=== PATIENT | female | born 1960 | race Caucasian/White ===

== ENCOUNTER → 2016-06-23 | Outpatient (CLI) | payer BC ==
--- NOTE | 2016-06-23 08:35 | MM ---
Reason for exam: additional evaluation requested from prior study. Last mammogram was performed 7 months ago. History: Patient is postmenopausal. Family history of breast cancer in sister at age 48 and breast cancer in maternal aunt. Benign US biopsy breast VAD RT of the right breast, December 05, 2015. Benign US biopsy breast add'l VAD RT of the right breast, December 05, 2015. Benign left mammotome panel of the left breast, November 20, 2012. Benign left mammotome panel of the left breast, October 23, 2009. Benign US right guided VAD of the right breast, October 09, 2008. Benign excisional biopsy of the left breast, March 10, 2000. Cyst aspiration of the right breast. Excisional biopsy of the left breast. Excisional biopsy of the right breast. Took hormonal contraceptives for 10 years beginning at age 19. Physical Findings: Nurse did not find any significant physical abnormalities on exam. MG Diagnostic Mammo RT w CAD CC and MLO view(s) were taken of the right breast. Prior study comparison: December 05, 2015, right breast MG diagnostic mammo RT wo CAD. November 25, 2015, bilateral MG diagnostic mammo w CAD CAITY. The breast tissue is heterogeneously dense. This may lower the sensitivity of mammography. No significant new findings when compared with previous films. These results were verbally communicated with the patient and result sheet given to the patient on 06/23/16. ASSESSMENT: Benign, BI-RAD 2 RECOMMENDATION: Routine screening mammogram of both breasts in 5 months. Back on schedule for November 2016.
== END | disposition home or self-care (01) ==
LOC: RADMAMWWP 07:12
PROVIDERS: ATTEND Surgery
DX: R92.8 Other abnormal and inconclusive findings on diagnostic imaging of breast (principal)

== ENCOUNTER → 2016-12-07 | Outpatient (CLI) | payer BC ==
--- NOTE | 2016-12-10 07:25 | MM ---
Reason for exam: screening (asymptomatic). Last mammogram was performed 5 months ago. History: Patient is postmenopausal. Family history of breast cancer in sister at age 48 and breast cancer in maternal aunt. Benign US biopsy breast VAD RT of the right breast, December 05, 2015. Benign US biopsy breast add'l VAD RT of the right breast, December 05, 2015. Benign left mammotome panel of the left breast, November 20, 2012. Benign left mammotome panel of the left breast, October 23, 2009. Benign US right guided VAD of the right breast, October 09, 2008. Benign excisional biopsy of the left breast, March 10, 2000. Cyst aspiration of the right breast. Excisional biopsy of the left breast. Excisional biopsy of the right breast. Took hormonal contraceptives for 10 years beginning at age 19. Physical Findings: A clinical breast exam by your physician is recommended on an annual basis and results should be correlated with mammographic findings. MG Screening Mammo w CAD Bilateral CC and MLO view(s) were taken. Prior study comparison: June 23, 2016, right breast MG diagnostic mammo RT w CAD. November 25, 2015, bilateral MG diagnostic mammo w CAD CAITY. The breast tissue is heterogeneously dense. This may lower the sensitivity of mammography. Previous mammotome biopsy within the right breast x 3. Previous mammotome biopsy within the left breast x 2. No significant changes when compared with prior studies. ASSESSMENT: Benign, BI-RAD 2 RECOMMENDATION: Routine screening mammogram of both breasts in 1 year.
== END | disposition home or self-care (01) ==
LOC: RADMAMWWP 12:13
PROVIDERS: ATTEND Surgery
DX: Z12.31 Encounter for screening mammogram for malignant neoplasm of breast (principal)

== ENCOUNTER → 2017-02-28 | Outpatient (CLI) | payer BC ==
[2017-02-28 07:49] LABS: CH 30.7; CHCM 31.3; HDW 2.12; HGB 13.6 gm/dL (11.4-16.0); MCH 31.2 pg (25.0-35.0); MCHC 31.6 g/dL (31.0-37.0); MCV 98.7 fL (80.0-100.0); Mean Platelet Volume 7.7; RBC 4.36 m/uL (3.80-5.40); RDW 13.2 % (11.5-15.5); WBC 4.7 k/uL (3.8-10.6)
[2017-02-28 08:34] LABS: ALT 27 U/L (9-52); AST 22 U/L (14-36); Alkaline Phosphatase 94 U/L (38-126); Anion Gap 5 mmol/L; Blood Urea Nitrogen 17 mg/dL (7-17); Calcium 9.6 mg/dL (8.4-10.2); Carbon Dioxide 30 mmol/L (22-30); Chloride 106 mmol/L (98-107); Cholesterol 206 mg/dL (<200); Glucose 86 mg/dL (74-99); HDL Cholesterol 107 mg/dL (40-60); Non-African American GFR(MDRD) >60 (>60 ml/min/1.73 sqM); Potassium 4.3 mmol/L (3.5-5.1); Sodium 141 mmol/L (137-145); Total Bilirubin 0.5 mg/dL (0.2-1.3); Total Protein 6.9 g/dL (6.3-8.2)
== END | disposition home or self-care (01) ==
LOC: LABWHC1 07:16
PROVIDERS: ATTEND Family Medicine
DX: H53.9 Unspecified visual disturbance (principal); E53.8 Deficiency of other specified B group vitamins; D64.9 Anemia, unspecified
CPT/HCPCS: 36415; 80053; 80061; 84443; 85027

== ENCOUNTER → 2017-11-01 | Outpatient (CLI) | payer BC ==
--- NOTE | 2017-11-02 14:54 | USB ---
Reason for exam: additional evaluation requested from abnormal screening. History: Patient is postmenopausal. Family history of breast cancer in sister at age 48 and breast cancer in maternal aunt. Benign US biopsy breast VAD RT of the right breast, December 05, 2015. Benign US biopsy breast add'l VAD RT of the right breast, December 05, 2015. Benign left mammotome panel of the left breast, November 20, 2012. Benign left mammotome panel of the left breast, October 23, 2009. Benign US right guided VAD of the right breast, October 09, 2008. Benign excisional biopsy of the left breast, March 10, 2000. Cyst aspiration of the right breast. Excisional biopsy of the left breast. Excisional biopsy of the right breast. Took hormonal contraceptives for 10 years beginning at age 19. US Breast LT Left complete breast ultrasound includes all four quadrants, the retroareolar region and axilla. Finding demonstrates a 1.8 x 0.7 x 1.6cm oval lesion at 2 o'clock at patient's palpable. This has an appearance suggestive of a prominent lymph node. 6 month follow up recommended. These results were verbally communicated with the patient and result sheet given to the patient on 11/01/17. ASSESSMENT: Probably benign, BI-RAD 3 RECOMMENDATION: Follow-up diagnostic mammogram and ultrasound of the left breast in 6 months.
== END | disposition home or self-care (01) ==
LOC: RADUSWWP 08:10
PROVIDERS: ATTEND Obstetrics & Gynecology
DX: N63.20 Unspecified lump in the left breast, unspecified quadrant (principal)

== ENCOUNTER → 2017-11-01 | Outpatient (CLI) | payer BC ==
--- NOTE | 2017-11-02 14:52 | MM ---
Reason for exam: clinical finding. Last mammogram was performed 11 months ago. History: Patient is postmenopausal. Family history of breast cancer in sister at age 48 and breast cancer in maternal aunt. Benign US biopsy breast VAD RT of the right breast, December 05, 2015. Benign US biopsy breast add'l VAD RT of the right breast, December 05, 2015. Benign left mammotome panel of the left breast, November 20, 2012. Benign left mammotome panel of the left breast, October 23, 2009. Benign US right guided VAD of the right breast, October 09, 2008. Benign excisional biopsy of the left breast, March 10, 2000. Cyst aspiration of the right breast. Excisional biopsy of the left breast. Excisional biopsy of the right breast. Took hormonal contraceptives for 10 years beginning at age 19. Physical Findings: Nurse did not find any significant physical abnormalities on exam. MG Diagnostic Mammo w CAD CAITY Bilateral CC and MLO view(s) were taken. Prior study comparison: December 07, 2016, bilateral MG screening mammo w CAD. June 23, 2016, right breast MG diagnostic mammo RT w CAD. The breast tissue is heterogeneously dense. This may lower the sensitivity of mammography. Previous mammotome biopsy in the right breast x 3 and in the left breast x 1. Patient reports lump 3 o'clock left breast. No significant new findings when compared with previous films. These results were verbally communicated with the patient and result sheet given to the patient on 11/01/17. ASSESSMENT: Incomplete: need additional imaging evaluation, BI-RAD 0 RECOMMENDATION: Ultrasound of the left breast.
== END | disposition home or self-care (01) ==
LOC: RADMAMWWP 08:07
PROVIDERS: ATTEND Student in an Organized Health Care Education/Training Program
DX: N63.20 Unspecified lump in the left breast, unspecified quadrant (principal)
CPT/HCPCS: 77066

== ENCOUNTER → 2018-05-08 | Day surgery (SDC) | payer BC ==
[2018-05-08 07:15] VITALS: RESP 16; BMI 25.8
[2018-05-08 08:47] VITALS: BP 112/68; PULSE 92; TEMP 98.8
--- NOTE | 2018-05-08 08:50 | USB ---
EXAMINATION TYPE: US biopsy breast VAD LT, MG diagnostic mammo LT wo CAD DATE OF EXAM: 05/08/2018 CLINICAL HISTORY: R92.8 ABN. ALEXSANDRA. Abnormal ultrasound. History of bilateral prior biopsies including benign excisional biopsy left breast in the past. TECHNIQUE: Ultrasound guided core biopsy of left breast with clip placement and follow-up two-view mammogram. COMPARISON: Mammogram and ultrasound April 27, 2018 and older studies FINDINGS: The procedure of ultrasound guided core biopsy was explained to the patient. Benefits, alternatives, and risks were discussed. An informed consent was then obtained. The patient was placed in supine positioning for imaging and for the procedure. Preprocedure ultrasound redemonstrates vague irregular shadowing roughly 1 cm area 1:00 position zone B C in the left breast. Scanning of the axilla shows no suspicious or obvious adenopathy to warrant sampling at this time. The overlying skin was prepped and draped in usual sterile fashion. Lidocaine buffered with bicarbonate was used as anesthetic into the skin and subcutaneous tissue up to area of concern in the left breast. A devendra was made with surgical scalpel. Under ultrasound guidance, a 12-gauge vacuum assisted biopsy gun device was used to obtain 4 core samples. Following this, a biopsy clip was left in lesion. The patient tolerated the procedure well without any immediate complication. The patient was kept in the radiology department for short stay after the procedure and then discharged home in stable condition. Postprocedure mammogram shows successful deployment of new clip into the left breast upper portion mid depth. IMPRESSION: Successful, uncomplicated ultrasound guided core biopsy of area of concern in the left breast, full pathology results to follow. Intermediate index of suspicion noted at time of procedure. Pathology Results: Malignant LEFT BREAST, ULTRASOUND GUIDED CORE BIOPSY: Invasive lobular carcinoma and lobular carcinoma in situ (LCIS). See Surgical Pathology Cancer Case Summary and Comment. Recommendation Surgical consult of the left breast. JESUS
== END | disposition home or self-care (01) ==
LOC: RADUSWWP 06:55
PROVIDERS: ATTEND Student in an Organized Health Care Education/Training Program
DX: C50.912 Malignant neoplasm of unspecified site of left female breast (principal)
CPT/HCPCS: 88305; 88342; 88341; 77065; 19083; A4648; J2001

== ENCOUNTER → 2018-08-12 | Outpatient (CLI) | payer BC ==
--- NOTE | 2018-08-13 20:23 | XR ---
EXAMINATION TYPE: XR chest 2V DATE OF EXAM: 08/12/2018 COMPARISON: NONE HISTORY: C50.812. Follow-up after bilateral double mastectomy. TECHNIQUE: Frontal and lateral views of the chest are obtained. FINDINGS: Bilateral overlying breast expanders are noted. There is no focal air space opacity, pleura l effusion, or pneumothorax seen. The cardiac silhouette size is within normal limits. The osseous structures are intact. IMPRESSION: No acute cardiopulmonary process.
== END | disposition home or self-care (01) ==
LOC: RADXRMAIN 09:20
PROVIDERS: ATTEND Internal Medicine Medical Oncology
DX: C50.812 Malignant neoplasm of overlapping sites of left female breast (principal)
CPT/HCPCS: 71046

== ENCOUNTER → 2018-08-12 | Outpatient (CLI) | payer BC ==
[2018-08-12 09:43] LABS: Basophils % (A) 1 %; Eosinophils # (A) 0.1 k/uL (0-0.7); Eosinophils % (A) 3 %; HCT 40.1 % (34.0-46.0); HGB 12.7 gm/dL (11.4-16.0); Lymphocytes # (A) 1.5 k/uL (1.0-4.8); Lymphocytes % (A) 31 %; MCH 30.8 pg (25.0-35.0); MCHC 31.7 g/dL (31.0-37.0); MCV 97.2 fL (80.0-100.0); Monocytes # (A) 0.4 k/uL (0-1.0); Monocytes % (A) 8 %; Neutrophils # (A) 2.5 k/uL (1.3-7.7); Neutrophils % (A) 53 %; Platelet Count 292 k/uL (150-450); RBC 4.12 m/uL (3.80-5.40); RDW 13.5 % (11.5-15.5); WBC 4.7 k/uL (3.8-10.6)
[2018-08-12 17:33] LABS: Albumin 4.5 g/dL (3.80-4.90); Albumin/Globulin Ratio 2.25 (1.60-3.17); Anion Gap 7.2 mmol/L (4.00-12.00); Calcium 9.3 mg/dL (8.7-10.3); Carbon Dioxide 28.8 mmol/L (21.6-31.8); Potassium 4.1 mmol/L (3.5-5.5); Total Bilirubin 0.4 mg/dL (0.3-1.2); Total Protein 6.5 g/dL (6.2-8.2)
== END ==
LOC: LABWHC1 08:54
PROVIDERS: ATTEND Internal Medicine Medical Oncology
DX: C50.812 Malignant neoplasm of overlapping sites of left female breast (principal)
CPT/HCPCS: 36415; 80053; 82306; 85025

== ENCOUNTER → 2018-08-14 | Outpatient (CLI) | payer BC ==
--- NOTE | 2018-08-14 17:41 | BD ---
EXAMINATION TYPE: Axial Bone Density DATE OF EXAM: 08/14/2018 COMPARISON: 11/14/2013 CLINICAL HISTORY: 57-year-old female postmenopausal screening malignant neoplasm Height: 68 IN Weight: 176 LBS RISK FACTORS HISTORY OF: Active: YES Postmenopausal woman: AGE 49 MEDICATIONS: Additional Medications: VIT D, CALCIUM, MULTI VIT Additional History: BREAST CANCER EXAM MEASUREMENTS: Bone mineral densitometry was performed using the [employer] System. Bone mineral density as measured about the Lumbar spine is: ----- L1-L4(G/cm2): 0.851 T Score Values are as follows: ----- L2: -2.9 ----- L3: -2.8 ----- L4: -3.0 ----- L1-L4: -2.7 Bone mineral density has: Decreased -10.6% since study of: 11/14/2013 Bone mineral density about the R hip (g/cm2): 0.850 Bone mineral density about the L hip (g/cm2): 0.846 T Score values are as follows: -----R Neck: -1.4 -----L Neck: -1.4 -----R Total: -1.1 -----L Total: -0.9 Bone mineral density has: Decreased -3.6% since study of: 11/14/2013 IMPRESSION: Osteoporosis (T Score less than -2.5). There is increased fracture risk and therapy is usually indicated based on age. Re-Screen 1-2 years. NOTE: T-SCORE=SD OF THE YOUNG ADULT MEAN.
== END | disposition home or self-care (01) ==
LOC: RADBDWWP 07:40
PROVIDERS: ATTEND Internal Medicine Medical Oncology
DX: M81.0 Age-related osteoporosis without current pathological fracture (principal); N95.1 Menopausal and female climacteric states
CPT/HCPCS: 77080

== ENCOUNTER → 2020-10-13 | Outpatient (CLI) | payer BC ==
--- NOTE | 2020-10-13 12:55 | XR ---
EXAMINATION TYPE: XR chest 2V DATE OF EXAM: 10/13/2020 COMPARISON: 08/12/2018 HISTORY: Shortness of breath TECHNIQUE: Frontal and lateral views of the chest are obtained. FINDINGS: Scattered senescent parenchymal changes noted. Hyperinflation compatible with COPD. No evidence for infiltrate. No evidence for atelectasis. Heart size is stable. Mediastinal structures are stable and grossly unremarkable. No evidence for hilar prominence. Degenerative changes dorsal spine. IMPRESSION: 1. No evidence for acute pulmonary disease.
--- NOTE | 2020-10-13 15:23 | XR ---
EXAMINATION TYPE: XR cervical spine comp DATE OF EXAM: 10/13/2020 TECHNIQUE: Frontal, lateral, oblique, and odontoid views of the cervical spine are obtained. HISTORY: C50.812, C50.812 COMPARISON: None FINDINGS: The cervical spine is visualized in its entirety from C1 thru the top of T1 level. There i s straightening of the cervical lordosis. No evidence of acute fracture or subluxation. Vertebral bod y heights are normal. There is grade 1 anterolisthesis of C4 on C5. There is likely minimal grade 1 r etrolisthesis of C5 on C6. There is disc space narrowing at C5-C6 with degenerative endplate spurring anteriorly. There is neural foraminal bony encroachment at C4-C5 and C5-C6 on the right, and of C5-C 6 on the left. The lateral masses and atlantoaxial alignment on open mouth view are within normal stevens its. The base of the dens is not well visualized. No prevertebral soft tissue swelling. IMPRESSION: 1. No acute fracture or subluxation is seen in the cervical spine. 2. Grade 1 spondylolistheses, degenerative disc disease, and facet arthropathy as above.
== END | disposition home or self-care (01) ==
LOC: RADXRMAIN 12:03
PROVIDERS: ATTEND Internal Medicine Medical Oncology
DX: R06.02 Shortness of breath (principal); M50.30 Other cervical disc degeneration, unspecified cervical region; M47.812 Spondylosis without myelopathy or radiculopathy, cervical region; M43.12 Spondylolisthesis, cervical region
CPT/HCPCS: 71046; 72050

== ENCOUNTER → 2020-10-13 | Outpatient (CLI) | payer BC ==
--- NOTE | 2020-10-13 16:04 | BD ---
EXAMINATION TYPE: Axial Bone Density DATE OF EXAM: 10/13/2020 COMPARISON: NONE CLINICAL HISTORY: Osteoporosis Height: 5 FT 7 3/4 IN Weight: 183 FRAX RISK QUESTIONS: Alcohol (3 or more units per day): NO Family History (Parent hip fracture): NO Glucocorticoids (More than 3mos): NO (Ex: prednisone, prednisolone, methylprednisolone, dexamethasone, and hydrocortisone). History of Fracture in Adulthood: NO Secondary Osteoporosis: 1. Type 1 Diabetes: NO 2. Hyperthyroidism: NO 3. Menopause before 45: NO 4. Malnutrition: NO 5. Chronic liver disease: NO Rheumatoid Arthritis: NO Current Tobacco Use: NO RISK FACTORS HISTORY OF: Surgery to Spine/Hip(right/left)/Wrist (right/left): NO Family History of Osteoporosis: NO Active: YES Diet low in dairy products/other sources of calcium: NO Postmenopausal woman: AGE 49 Take estrogen and/or progesterone medications: NO Lost more than 2 inches in height since high school: YES MEDICATIONS: Osteoporosis Medications: YES Which medication: BONIVA How Long: ONE YEAR Additional Medications: HORMONE [place], BONIVA Additional History: BREAST CANCER 2019 RADIATION CAITY MASTECTOMY EXAM MEASUREMENTS: Bone mineral densitometry was performed using the [employer] System. Bone mineral density as measured about the Lumbar spine is: ----- L1-L4(G/cm2): 0.913 T Score Values are as follows: ----- L2: -2.1 ----- L3: -2.8 ----- L4: -2.4 ----- L1-L4: -2.2 Bone mineral density has: INCREASED 6.6 % since study of: 2019 Bone mineral density about the R hip (g/cm2): 0.832 Bone mineral density about the L hip (g/cm2): 0.884 T Score values are as follows: -----R Neck: -1.5 -----L Neck: -1.1 -----R Total: -1.1 -----L Total: -0.6 Bone mineral density has: INCREASED 1.5 % since study of: 2019 IMPRESSION: Osteoporosis. NOTE: T-SCORE=SD OF THE YOUNG ADULT MEAN.
== END | disposition home or self-care (01) ==
LOC: RADBDWWP 12:40
PROVIDERS: ATTEND Obstetrics & Gynecology
DX: M81.0 Age-related osteoporosis without current pathological fracture (principal); Z85.3 Personal history of malignant neoplasm of breast
CPT/HCPCS: 77080

== ENCOUNTER → 2021-01-29 | Outpatient (CLI) | payer BC ==
[2021-01-29 23:04] LABS: HGB 14.7 g/dL (12.0-15.0); MCH 32.5 pg (27.0-32.0); MCHC 32.7 g/dL (32.0-37.0); MCV 99.6 fL (80.0-97.0); Mean Platelet Volume 10.9 fL (9.5-12.2); Platelet Count 278 X 10*3/uL (140-440); RBC 4.52 X 10*6/uL (4.10-5.20); RDW 12.2 % (11.5-14.5); WBC 6.28 X 10*3/uL (4.50-10.00)
[2021-01-30 04:05] LABS: Albumin 4.5 g/dL (3.8-4.9); Albumin/Globulin Ratio 1.88 (1.60-3.17); Anion Gap 17.1 mmol/L (4.00-12.00); BUN/Creat Ratio 17.17 Ratio (12.00-20.00); Blood Urea Nitrogen 10.3 mg/dL (9.0-27.0); Calcium 9.3 mg/dL (8.7-10.3); Carbon Dioxide 20.9 mmol/L (21.6-31.8); Globulin 2.4 g/dL (1.6-3.3); Non-African American GFR(CKD) 98.4 (60.0-200.0); Potassium 4.2 mmol/L (3.5-5.5); Total Bilirubin 0.4 mg/dL (0.30-1.20); Total Protein 6.9 g/dL (6.2-8.2)
== END | disposition home or self-care (01) ==
LOC: LABWHC1 16:13
PROVIDERS: ATTEND Internal Medicine Interventional Cardiology
DX: I48.0 Paroxysmal atrial fibrillation (principal)
CPT/HCPCS: 36415; 80053; 84443; 85027

== ENCOUNTER → 2022-06-23 | Outpatient (CLI) | payer BC ==
[2022-06-23 18:31] LABS: ALT 42 U/L (8-44); AST 28 U/L (13-35); African American GFR (CKD) 113.2 (60.0-200.0); Albumin 4.5 g/dL (3.8-4.9); Alkaline Phosphatase 106 U/L (41-126); BUN/Creat Ratio 18.83 Ratio (12.00-20.00); Blood Urea Nitrogen 11.3 mg/dL (9.0-27.0); Calcium 9.6 mg/dL (8.7-10.3); Carbon Dioxide 24.8 mmol/L (20.0-27.5); Chloride 102 mmol/L (96-109); Globulin 2.5 g/dL (1.6-3.3); Glucose 93 mg/dL (70-110); Non-African American GFR(CKD) 97.7 (60.0-200.0); Sodium 140 mmol/L (135-145)
== END | disposition home or self-care (01) ==
LOC: LABWHC1 11:10
PROVIDERS: ATTEND Nurse Practitioner Adult Health
DX: I48.0 Paroxysmal atrial fibrillation (principal)
CPT/HCPCS: 36415; 80053; 84439; 84443

== ENCOUNTER → 2022-10-15 | Outpatient (CLI) | payer BC ==
--- NOTE | 2022-10-15 16:15 | BD ---
EXAMINATION TYPE: Axial Bone Density DATE OF EXAM: 10/15/2022 CLINICAL HISTORY: 61 years old Female. ICD-10 CODE: M85.88 OT DISRD OF BONE DENSITY AND STRUCTURE, OTHER SITE Nuclear Medicine Study in the last 2 weeks: Barium Study in the last week: : Height: 67.25 Weight: 185.3 FRAX RISK QUESTIONS: Alcohol (3 or more units per day): no Family History (Parent hip fracture): no Glucocorticoids (More than 3mos): no History of Fracture in Adulthood: no Secondary Osteoporosis: 1. Type 1 Diabetes: no 2. Hyperthyroidism: no 3. Menopause before 45: no 4. Malnutrition: no 5. Chronic liver disease: no Rheumatoid Arthritis: no Current Tobacco Use: no RISK FACTORS HISTORY OF: Hip Fracture (Right/Left): no Spine Fracture: no History of Wrist Fracture: no Surgery to Spine/Hip(right/left)/Wrist (right/left): no Family History of Osteoporosis: no Active: yes Diet low in dairy products/other sources of calcium: yes Postmenopausal woman: yes Take estrogen and/or progesterone medications: no Lost more than 2 inches in height since high school: yes Frequent falls: no Poor Health: no Hyperparathyroidism: no Adrenal Insufficiency: no MEDICATIONS: Prednisone or other steroids: no Thyroid Medications: no Osteoporosis Medications: Boniva once a month How Long: Past 5 years Additional Medications: Multi Vit, Calcium, Iron, Vit D, Biotin, Arimidex, Additional History: Breast Ca. 2019 with Radiation EXAM MEASUREMENTS: Bone mineral densitometry was performed using the [employer] System. Bone mineral density as measured about the Lumbar spine is: ----- L1-L4(G/cm2): 0.893 T Score Values are as follows: ----- L1: -1.9 ----- L2: -2.3 ----- L3: -2.8 ----- L4: -2.5 ----- L1-L4: -2.4 Z Score Values are as follows: ----- L1: -1.2 ----- L2: -1.6 ----- L3: -2.0 ----- L4: -1.7 ----- L1-L4: -1.6 Bone mineral density has: decreased -2.2 % since study of: 10/13/2020 Bone mineral density about the R hip (g/cm2): 0.897 Bone mineral density about the L hip (g/cm2): 0.939 T Score values are as follows: -----R Neck: -1.3 -----L Neck: -1.4 -----R Total: -0.9 -----L Total: -0.5 Z Score values are as follows: -----R Neck: -0.3 -----L Neck: -0.4 -----R Total: -0.3 -----L Total: 0.1 Bone mineral density has: increased 2.5 % since study of: 10/13/2020 FRAX%s: The graph provided illustrates a 8.0% chance for a major osteoporotic fx and a 0.7% chance fo r the hips probability for fx in 10 years time. IMPRESSION: Osteopenia (T Score between -2.5 and -1). There is slightly increased risk of fracture and the patient may be considered for treatment. Re-Screen 2-5 years. NOTE: T-SCORE=SD OF THE YOUNG ADULT MEAN.
== END | disposition home or self-care (01) ==
LOC: RADBDWWP 14:38
PROVIDERS: ATTEND Obstetrics & Gynecology
DX: M81.0 Age-related osteoporosis without current pathological fracture (principal); M85.89 Other specified disorders of bone density and structure, multiple sites; Z78.0 Asymptomatic menopausal state
CPT/HCPCS: 77080

== ENCOUNTER → 2023-04-25 | Outpatient (CLI) | payer BC ==
[2023-04-25 15:06] LABS: HGB 14.2 g/dL (12.0-15.0); MCHC 32.3 g/dL (32.0-37.0); MCV 99.1 FL (80.0-97.0); Mean Platelet Volume 10.7 FL (9.5-12.2); NRBC Per 100 WBC 0 X 10*3/uL (0.00-0.01); Platelet Count 244 X 10*3/uL (140-440); RBC 4.44 X 10*6/uL (4.10-5.20); RDW 12.6 % (11.5-14.5); WBC 4.38 X 10*3/uL (4.50-10.00)
[2023-04-25 15:29] LABS: ALT 37 U/L (8-44); AST 25 U/L (13-35); Albumin 4.4 g/dL (3.8-4.9); Albumin/Globulin Ratio 1.83 Ratio (1.60-3.17); Alkaline Phosphatase 91 U/L (41-126); Blood Urea Nitrogen 10.5 mg/dL (9.0-27.0); Calcium 9.6 mg/dL (8.7-10.3); Carbon Dioxide 28.4 mmol/L (21.6-31.8); Chloride 102 mmol/L (96-109); Chol/HDL Ratio 2.08 Ratio; Globulin 2.4 g/dL (1.6-3.3); Glucose 82 mg/dL (70-110); Potassium 4.5 mmol/L (3.5-5.5); Sodium 141 mmol/L (135-145); Total Bilirubin 0.7 mg/dL (0.3-1.2); Total Protein 6.8 g/dL (6.2-8.2); VLDL Calculation 18.96 mg/dL (5.00-40.00)
== END | disposition home or self-care (01) ==
LOC: LABWHC1 06:55
PROVIDERS: ATTEND Family Medicine
DX: I10 Essential (primary) hypertension (principal); I48.91 Unspecified atrial fibrillation; E78.5 Hyperlipidemia, unspecified; M85.80 Other specified disorders of bone density and structure, unspecified site; R73.09 Other abnormal glucose
CPT/HCPCS: 36415; 80053; 80061; 82306; 83036; 84443; 85027

== ENCOUNTER → 2023-06-17 | Outpatient (CLI) | payer BC ==
[2023-06-18 04:26] LABS: Blood Urea Nitrogen 9.2 mg/dL (9.0-27.0); Carbon Dioxide 26.7 mmol/L (21.6-31.8); Chloride 104 mmol/L (96-109); Potassium 4.1 mmol/L (3.5-5.5); Sodium 142 mmol/L (135-145)
[2023-06-18 05:00] LABS: HCT 41.8 % (37.2-46.3); HGB 13.2 g/dL (12.0-15.0); MCH 31.8 pg (27.0-32.0); MCHC 31.6 g/dL (32.0-37.0); MCV 100.7 FL (80.0-97.0); Mean Platelet Volume 10.4 FL (9.5-12.2); NRBC Per 100 WBC 0 X 10*3/uL (0.00-0.01); Platelet Count 240 X 10*3/uL (140-440); RBC 4.15 X 10*6/uL (4.10-5.20); RDW 12.9 % (11.5-14.5)
== END | disposition home or self-care (01) ==
LOC: LABPAT 14:30
PROVIDERS: ATTEND Internal Medicine Clinical Cardiac Electrophysiology
DX: Z01.812 Encounter for preprocedural laboratory examination (principal); I48.0 Paroxysmal atrial fibrillation
CPT/HCPCS: 36415; 80051; 82565; 84520; 85027

== ENCOUNTER 2023-06-23 09:10 | Observation (INO) | payer BC ==
[~2023-06-23 09:10] MED LIST: HYDROmorphone 0.5 MG/0.5 ML SYRINGE IVP PRN; SODIUM CHLORIDE 0.9% 1,000 ML IV SCH
[2023-06-23] MEDS: SODIUM CHLORIDE 0.9% 1,000 ML IV ONE (09:28)
[2023-06-23 10:33] LABS: ALT 34 U/L (4-34); AST 35 U/L (14-36); African American GFR (CKD) >90 (>60 ml/min/1.73 sqM); Albumin 3.8 g/dL (3.5-5.0); Alkaline Phosphatase 98 U/L (38-126); Anion Gap 4 mmol/L; Blood Urea Nitrogen 9 mg/dL (7-17); Calcium 8.6 mg/dL (8.4-10.2); Carbon Dioxide 28 mmol/L (22-30); Chloride 107 mmol/L (98-107); Glucose 101 mg/dL (74-99); Non-African American GFR(CKD) >90 (>60 ml/min/1.73 sqM); Potassium 3.8 mmol/L (3.5-5.1); Sodium 139 mmol/L (137-145); Total Bilirubin 0.5 mg/dL (0.2-1.3); Total Protein 6.4 g/dL (6.3-8.2)
[2023-06-23] MEDS ORDERED: HEPARIN SODIUM,PORCINE 10,000 UNIT/ML 1 ML VIAL ONE (11:37)
[2023-06-23] MEDS ORDERED: MIDAZOLAM 2 MG/2 ML VIAL ONE (11:37)
[2023-06-23] MEDS ORDERED: ISOPROTERENOL 250 MCG/1.25 ML SYR IV ONE (11:37)
[2023-06-23] MEDS ORDERED: ePHEDrine 50 MG/ML 1 ML VIAL ONE (11:37)
[2023-06-23] MEDS ORDERED: HYDROmorphone (PF) 1 MG/ML ONE (11:37)
[2023-06-23] MEDS ORDERED: fentaNYL (PF) 50 MCG/ML 2 ML AMP ONE (11:37)
[2023-06-23] MEDS ORDERED: LIDOCAINE 1% INJ 10MG/ML (20 ML MDV) ONE (11:37)
[2023-06-23] MEDS ORDERED: SUCCINYLCHOLINE CHLORIDE 200 MG/10 ML VIAL IV ONE (11:37)
[2023-06-23] MEDS ORDERED: PROPOFOL 10 MG/ML 20 ML VIAL IV ONE (11:37)
[2023-06-23] MEDS: HEPARIN SOD,PORK IN 0.45% NACL 25,000 UNIT in 0.45% NACL 1 250ML.BAG IV ONE (11:55)
[2023-06-23] MEDS: LIDOCAINE 1% INJ 10MG/ML (20 ML MDV) SQ ONE (12:08)
[2023-06-23] MEDS: LACTATED RINGERS 1,000 ML IV ONE (13:18)
[2023-06-23] MEDS: IOPAMIDOL-370 100ML BTL INJ ONE (13:42)
--- NOTE | 2023-06-23 14:09 | P.HPCAR ---
History of Present Illness This is Dr. Valles dictating an H/P on this patient The patient was interviewed and examined IMPRESSION / ASSESSMENT: Paroxysmal atrial fibrillation with RVR Breakthrough episodes on Multaq Intolerant of Multaq Stress echo was normal History of breast cancer status post radiation treatment in the past 5 years back PLAN: Proceed with pulmonary vein isolation Intracardiac echo evaluation of the pulmonary veins and the pericardium HPI Patient continues to have episodes of palpitations and A-fib with RVR despite tr eatment with Multaq In addition she does not feel good on Multaq Previous 2D echo shows preserved systolic function with mild left atrial enlargement Stress echo was normal She denies any fever chills cough expectoration ROS: No fever chills or rigors, no cough, phlegm or expectoration, no nausea, vomiting or diarrhea, no hematuria, dysuria, no musculoskeletal complaints, no strokes or seizures, no skin lesions. EXAMINATION: Afebrile pulse rate in the 60s blood pressure 135/73 mmHg No JVD Clear lungs no rhonchi no crackles Normal heart sounds normal S1 normal S2 no murmurs No lower extremity edema REVIEW OF LABS, ECG & MEDICAL DATA Sodium 139 potassium 3.8 BUN 9 and creatinine 0.52 Normal liver function tests Normal TSH of 0.9 Physical Exam Vitals: Vital Signs Temp Pulse Resp BP Pulse Ox 06/23/23 09:38 98.1 F 67 16 135/73 97 Intake and Output 06/22/23 06/23/23 06/23/23 22:59 06:59 14:59 Intake Total 1334 Balance 1334 Intake: IV 1334 Other: Weight 86.2 kg Past Medical History Past Medical History: Cancer Additional Past Medical History / Comment(s): seasonal allergies (fall), breast cancer, See Dr. Valles's H&P History of Any Multi-Drug Resistant Organisms: None Reported Past Surgical History: Bariatric Surgery, Cholecystectomy Additional Past Surgical History / Comment(s): Gastric bypass 1999, numerous benign bilateral breast biopsies, bilat. mastectomy 2019 Past Anesthesia/Blood Transfusion Reactions: No Reported Reaction Smoking Status: Former smoker - Past Family History Sister(s) Family Medical History: AFIB, Cancer Additional Family Medical History / Comment(s): breast cancer diagnosed at age 48 Mother Family Medical History: AFIB, Cancer, CVA/TIA Additional Family Medical History / Comment(s): breast cancer Father Family Medical History: AFIB, Cancer Additional Family Medical History / Comment(s): prostate cancer Physical Examination Vital Signs Temp Pulse Resp BP Pulse Ox 06/23/23 09:38 98.1 F 67 16 135/73 97 Intake and Output 06/22/23 06/23/23 06/23/23 22:59 06:59 14:59 Intake Total 1334 Balance 1334 Intake: IV 1334 Other: Weight 86.2 kg Results 06/23/23 09:57 Cardiac Enzymes 06/23/23 Range/Units 09:57 AST 35 (14-36) U/L Comprehensive Metabolic Panel 06/23/23 Range/Units 09:57 Sodium 139 (137-145) mmol/L Potassium 3.8 (3.5-5.1) mmol/L Chloride 107 (98-107) mmol/L Carbon Dioxide 28 (22-30) mmol/L BUN 9 (7-17) mg/dL Creatinine 0.52 (0.52-1.04) mg/dL Glucose 101 H (74-99) mg/dL Calcium 8.6 (8.4-10.2) mg/dL AST 35 (14-36) U/L ALT 34 (4-34) U/L Alkaline Phosphatase 98 (38-126) U/L Total Protein 6.4 (6.3-8.2) g/dL Albumin 3.8 (3.5-5.0) g/dL Current Medications Generic Name Dose Route Start Last Admin Trade Name Freq PRN Reason Stop Dose Admin Hydromorphone HCl 0.5 mg 06/23/23 07:00 Hydromorphone 0.5 Mg/0.5 Ml Syringe IVP 06/23/23 23:00 Q5M PRN Phase 1 or 2 - Pain Control Sodium Chloride 1,000 mls @ 20 mls/hr 06/23/23 06:45 Saline 0.9% IV 07/23/23 06:46 .Q24H PARVIN Lactated Ringer's 1,000 mls @ 20 mls/hr 06/23/23 06:45 Lactated Ringers IV 07/23/23 06:46 .Q24H PARVIN Intake and Output 06/22/23 06/23/23 06/23/23 22:59 06:59 14:59 Intake Total 1334 Balance 1334 Intake: IV 1334 Other: Weight 86.2 kg Patient Weight 06/24/23 06:59 Weight 86.2 kg 06/23/23 09:57
--- NOTE | 2023-06-23 14:17 | P.EPPROC ---
- EP Procedure Note Electrophysiology Procedure Note: PROCEDURE A. fib ablation with PVI DIAGNOSIS Paroxysmal atrial fibrillation, symptomatic, refractory to therapy with Multaq RESULT No left atrial appendage mass seen on intracardiac echo Mildly thickened pericardium no effusion Very large, four pulmonary veins Successful A. fib ablation/pulmonary vein isolation of all veins using cryo- ablation Complete entrance block in all 4 veins confirmed No evidence for phrenic nerve injury Esophageal deflection YES PROCEDURE DETAILS Written informed consent prior to procedure. Patient brought to the EP lab. General anesthesia given. Heparin administered. A city maintained above 300 seconds Both groins prepped and draped per protocol and venous sheaths placed. Esophagus intubated, circa catheter for temperature monitoring an endoscope for possible esophageal deflection. Phrenic nerve monitoring performed. Esophageal temperature monitoring performed. Esophageal deflection performed if circa catheter overlapping with the balloon or circa temperature less than 27.5C Intracardiac echocardiography performed. Pericardium evaluated. Left atrial appendage evaluated. Left atrium evaluated along with pulmonary veins Transseptal catheterization performed under fluoroscopic guidance and intracardiac echo guidance Cryoablation sheath exchanged, balloon catheter along with achieve catheter placed in the left atrium. Pulmonary veins isolated in the following sequence: Left superior pulmonary vein followed by left inferior pulmonary vein, followed by right inferior pulmonary vein and lastly right superior pulmonary vein. Phrenic nerve stimulation along with capture thresholds within the SVC and right superior pulmonary vein to identify the phrenic nerve proximity to the cryo- balloon. Pulmonary veins isolated and confirmed with entrance and exit block. Phrenic nerve integrity confirmed at the end of the procedure Diagnostic catheters for the high right atrium, His bundle, coronary sinus placed. LA and RA pressures recorded RA pressure: 10/4/8 LA pressure: 20/2/12 Diagnostic EP study with coronary sinus pacing and recording Baseline measurements: Sinus cycle length 1105 ms, MD interval 129 ms, QRS 110 ms and QT interval 378 ms AH 45 and HV 35 ms Isopril was started and burst stimulation was performed No atrial fibrillation induced Venous sheaths were removed and hemostasis assured with a closure device. Patient extubated and transferred to recovery Increase procedural time Patient had very large pulmonary veins. All 4 pulmonary veins were very large in diameter with proximal branching The balloon would dive into the vein quite deep and therefore each tributary of the individual pulmonary veins was isolated separately This required extra lesions, 3 minutes followed by 2 minutes for each vein PROCEDURES PERFORMED Diagnostic EP study CS pacing and recording Left and right transseptal catheterization Catheter the mapping of the tachycardia Intracardiac echocardiography Pulmonary vein isolation with transseptal and comprehensive EPS, [id number] Extended procedure duration Drug infusion, [id number]
[2023-06-23] MEDS: SODIUM CHLORIDE 0.9% 1,000 ML IV SCH (16:58)
[2023-06-23] MEDS: ONDANSETRON 4 MG/2 ML VIAL IVP ONE (16:58)
[2023-06-23] MEDS: LACTATED RINGERS 1,000 ML IV SCH (16:58)
[2023-06-23] MEDS: DEXAMETHASONE SOD PHOSPHATE 4 MG/ML 1 ML VIAL IV ONE (16:58)
[2023-06-23] MEDS: droPERidol 5 MG/2 ML VIAL IVP ONE (16:58)
[2023-06-23] MEDS: RIVAROXABAN 20 MG TAB PO SCH (17:27)
[2023-06-23] MEDS: ACETAMINOPHEN IV (For NPO) 1,000 MG in EMPTY BAG 1 BAG IVPB ONE (17:28)
[2023-06-23] MEDS: METOPROLOL TARTRATE 50 MG TAB PO SCH (20:02)
[2023-06-24] MEDS: METOPROLOL TARTRATE 25 MG TAB PO SCH (09:20)
[2023-06-24] MEDS: SODIUM CHLORIDE 0.9% 1,000 ML IV SCH (11:26)
--- NOTE | 2023-06-24 12:15 | CT ---
EXAMINATION TYPE: CT brain wo con DATE OF EXAM: 06/24/2023 COMPARISON: None HISTORY: post cryoablation blurred vision CT DLP: 1152.4 mGycm Automated exposure control for dose reduction was used. FINDINGS: Head CT without contrast HISTORY: Migraine headaches. COMPARISON: 03/09/2016. TECHNIQUE: Multiple axial images are obtained from skull base to vertex finding uneventful administra tion of nonionic IV contrast material. FINDINGS: The ventricles, basal cisterns and sulci over the convexities within normal limits and there is no ma ss effect or shift of midline structures. No abnormal density is seen throughout the brain parenchyma and there is no acute intra or extra-axia l hemorrhage. The posterior fossa and brainstem, fourth ventricle and cerebellar pontine angles appear normal. The intraorbital contents appear normal and symmetric. Visualized paranasal sinuses and mastoid air cells are well aerated. IMPRESSION: No significant abnormality seen
[2023-06-24 13:38] LABS: HCT 42.3 % (34.0-46.0); HGB 13.3 gm/dL (11.4-16.0); MCH 32.4 pg (25.0-35.0); MCHC 31.4 g/dL (31.0-37.0); Macrocytosis Slight; Mean Platelet Volume 8.1; Platelet Count 234 k/uL (150-450); RBC 4.11 m/uL (3.80-5.40); RDW 12.6 % (11.5-15.5); WBC 7.4 k/uL (3.8-10.6)
[2023-06-24] MEDS: ACETAMINOPHEN TAB 325 MG TAB PO PRN (20:24)
--- NOTE | 2023-06-25 11:37 | P.PN ---
Progress Note - Text 62-year-old female who underwent successful PVI on Tuesday morning I saw her she was doing well No arrhythmias Blood pressure normal Sore throat, mild Mild vague sensation in the chest, not exactly a pain but definitely no pleuritic component or painful component On examination blood pressure was normal Heart rates were normal EKG was normal Breath sounds are clear Heart sounds are normal there is no rub no gallop Plan Discharge home on Tuesday by noon time Continue anticoagulation Stop metoprolol Reduce the dose of metoprolol to 25 mg twice daily Subsequently I received a call from the nurse later in the afternoon stating that she had some vision changes after had left with some blurred vision in the corner of both eyes She had no other symptoms no arrhythmias and she also noted that her heart rate was elevated with minimal exercise such as walking down the hallway No cardiac symptoms such as chest pain or dizziness or loss of consciousness or lightheadedness I treated her with IV fluids Continued anticoagulation continued metoprolol and obtain a CT of the brain This was completely normal I kept overnight for overnight observation Again in the evening she had similar brief symptoms with visual changes bilaterally in the corner of both eyes and therefore I kept her overnight for observation She had had no arrhythmias but once again the nurse noted that her heart rate was higher than usual especially when she walked but no arrhythmias
--- NOTE | 2023-06-25 11:45 | P.PN ---
Progress Note - Text 62-year-old female who underwent cryoablation of the pulmonary veins for management of symptomatic and refractory atrial fibrillation Uneventful intraoperative procedure with adequate anticoagulation, uninterrupted Xarelto 20 mg p.o. daily along with IV heparin through the procedure with ACT 300 and above No heparin reversal given at the end of the procedure as per my protocol This morning the patient had this funny blurred vision at the corner of the right eye only. This time it was not as severe She describes it as a prism like, C-shaped appearance in the corner of her right eye Unilateral symptoms today lasting for less than 30 minutes She states that this visual change occurs every 12 hours just before her next d ose of metoprolol In between she has no symptoms at all At this time of my examination at around 11:00 in the morning she is completely asymptomatic Her cranial nerve examination cerebellar examination motor examination are completely normal She has no imbalance I made her walk up and down the hallway, tandem walking no problems at all No visual field defects no cranial nerve palsies Absolutely no visual changes at this time Twelve-lead EKG shows sinus rhythm Mild sinus tachycardia with minimal exertion Blood pressure 120/79 pulse rate 107 118 afebrile Normal heart sounds Normal breath sounds No rub Impression Paroxysmal atrial fibrillation status post cryoablation of all 4 pulmonary veins Uninterrupted anticoagulation per protocol Multaq has been discontinued and the dose of metoprolol has been reduced by half Her unusual visual changes occur every 12 hours just before the next dose of metoprolol She has mild sinus tachycardia. In between she has absolutely no visual changes CT of the brain is completely normal It would be very unusual to have such a pattern of TIA with symptoms every 12 hours and no symptoms in between The symptoms today are milder than yesterday She does have mild sinus tachycardia Twelve-lead EKG is normal Suggest Neurology opinion Increase the dose of metoprolol to 50 mg twice daily No change in anticoagulation for now but I am considering switching to Eliquis at least for the first [address] of Xarelto
[2023-06-25] MEDS: METOPROLOL TARTRATE 25 MG TAB PO STA (12:10)
[2023-06-25 12:58] LABS: HCT 44.6 % (34.0-46.0); HGB 14.2 gm/dL (11.4-16.0); MCH 32.5 pg (25.0-35.0); MCHC 31.7 g/dL (31.0-37.0); MCV 102.5 fL (80.0-100.0); Macrocytosis Slight; Mean Platelet Volume 9.2; Platelet Count 254 k/uL (150-450); RBC 4.36 m/uL (3.80-5.40); RDW 12.9 % (11.5-15.5)
[2023-06-25 13:16] LABS: African American GFR (CKD) >90 (>60 ml/min/1.73 sqM); Anion Gap 8 mmol/L; Blood Urea Nitrogen 7 mg/dL (7-17); Calcium 9.2 mg/dL (8.4-10.2); Carbon Dioxide 24 mmol/L (22-30); Chloride 106 mmol/L (98-107); Glucose 125 mg/dL (74-99); Non-African American GFR(CKD) >90 (>60 ml/min/1.73 sqM); Potassium 4.2 mmol/L (3.5-5.1); Sodium 138 mmol/L (137-145)
[2023-06-25] MEDS: ASPIRIN 81 MG PO SCH (17:07)
[2023-06-25] MEDS: METOPROLOL TARTRATE 50 MG TAB PO SCH (21:19)
--- NOTE | 2023-06-26 09:37 | P.CNNES ---
History of Present Illness Consult date: 06/25/23 Requesting physician: Chun Valles Reason for Consult: blurred vision, headaches History of Present Illness: Patient is a 62-year-old right-handed female, with history of atrial fibrillation, who came to the hospital on 06/23/2023 for elective cardiac ablation procedure that was performed on the same day on 06/23/2023, has developed transient visual disturbance. Patient states that her first episode of visual disturbance occurred yesterday morning on 06/24/2023, when she saw half "C" in the right visual field, which was [id number] and lasted for about 30 minutes and then went away. She had a mild pressure headache over the forehead afterwards. About 12 hours later, last night it did it again but it was donal ateral "C" shaped visual disturbance all colored, that lasted also for about 30 minutes and afterwards she had a headache. This morning she had a third event again of same shape [id number] blurry fuzzy involving the right side, that lasted for 30 minutes. She denies any other focal neurological symptoms like slurred speech facial droop loss of vision, double vision, any focal numbness tingling or weakness. Patient states that she did have history of 1 episode of similar symptoms about 2 years ago that lasted only for couple minutes. Patient is a non-smoker, does not drink alcohol. Denies hypertension or diabetes. She was diagnosed with atrial fibrillation in February 2021. Patient has been on Eliquis, then switched to Xarelto about a year ago. Patient states that she does take vitamin B12 2500 mcg, calcium, multivitamin, vitamin D3 and iron besides her blood pressure medications. Patient has history of stage I breast cancer diagnosed 5 years ago. She underwent mastectomy followed by radiation. She is on oral chemotherapy since then. Review of Systems Constitutional: Denies chills, Denies fever Eyes: bilateral as per HPI, denies diplopia, denies pain Ears: deny: decreased hearing, ear discharge Ears, nose, mouth and throat: Reports headache, Denies sore throat, Denies vertigo Cardiovascular: Denies chest pain, Denies shortness of breath Respiratory: Denies cough, Denies excessive sputum Gastrointestinal: Denies abdominal pain, Denies diarrhea, Denies nausea, Denies vomiting Integumentary: Denies pruritus, Denies rash Neurological: Reports as per HPI Past Medical History Past Medical History: Cancer Additional Past Medical History / Comment(s): seasonal allergies (fall), breast cancer, See Dr. Valles's H&P History of Any Multi-Drug Resistant Organisms: None Reported Past Surgical History: Bariatric Surgery, Cholecystectomy Additional Past Surgical History / Comment(s): Gastric bypass 1999, numerous benign bilateral breast biopsies, bilat. mastectomy 2019 Past Anesthesia/Blood Transfusion Reactions: No Reported Reaction Smoking Status: Former smoker - Past Family History Sister(s) Family Medical History: AFIB, Cancer Additional Family Medical History / Comment(s): breast cancer diagnosed at age 48 Mother Family Medical History: AFIB, Cancer, CVA/TIA Additional Family Medical History / Comment(s): breast cancer Father Family Medical History: AFIB, Cancer Additional Family Medical History / Comment(s): prostate cancer Medications and Allergies Home Medications Medication Instructions Recorded Confirmed Type Ascorbic Acid [Vitamin C] 500 mg PO DAILY 05/02/18 06/21/23 History Cholecalciferol [Vitamin D3 (25 1,000 unit PO DAILY 05/02/18 06/21/23 History Mcg = 1000 Iu)] Loratadine [Claritin] 10 mg PO DAILY PRN 05/02/18 06/21/23 History Multivitamin,Therapeutic [Thera] 1 each PO DAILY 05/02/18 06/21/23 History Anastrozole 1 mg PO QAM 06/21/23 06/23/23 History Calcium Carbonate/Vitamin D3 1 each PO BID 06/21/23 06/21/23 History [Calcium 500 mg Chewable Tablet] Cyanocobalamin [Vitamin B-12] 500 mcg PO DAILY 06/21/23 06/21/23 History Ferrous Sulfate [Iron (65 MG 325 mg PO DAILY 06/21/23 06/21/23 History Elemental)] Ibandronate Sodium [Boniva] 150 mg PO QMONTHLY 06/21/23 06/23/23 History Metoprolol Tartrate [Lopressor] 50 mg PO BID 06/21/23 06/23/23 History Rivaroxaban [Xarelto] 20 mg PO W/SUPPER 06/21/23 06/23/23 History Apixaban [Eliquis] 5 mg PO BID #60 tab 06/25/23 Rx Allergies Allergy/AdvReac Type Severity Reaction Status Date / Time No Known Allergies Allergy Verified 06/23/23 09:38 Physical Examination - Vital Signs Vital Signs: Vital Signs Temp Pulse Resp BP BP Pulse Ox 06/26/23 08:52 98.1 F 89 16 113/71 98 06/26/23 05:12 98.2 F 72 16 106/67 96 06/26/23 00:00 98 F 72 16 99/62 97 06/25/23 20:00 98.2 F 79 17 126/78 98 06/25/23 16:57 98.0 F 86 18 129/79 97 06/25/23 12:09 98.7 F 74 18 118/76 97 Intake and Output 06/25/23 06/26/23 06/26/23 22:59 06:59 14:59 Intake Total 1190 250 Balance 1190 250 Intake: IV 10 Invasive Line 2 10 Oral 1190 240 Other: Voiding Method Toilet Toilet # Voids 1 1 Patient is a late middle aged female, very pleasant, in no acute distress. Patient is alert awake oriented to time place and person. Speech and language functions are normal. Patient can name and repeat very well. No aphasia or dysarthria. Attention, concentration and fund of knowledge is adequate. On cranial nerve examination, pupils are equal, round and reacting to light, visual barboza are full on confrontation, with no neglect on double simultaneous stimulation. Extraocular muscles are intact with no nystagmus. Face is symmetric, tongue protrudes to the midline. Palatal elevation and sensation normal, hearing and shoulder shrug normal, facial sensation normal. On muscle strength testing, there is no pronator drift and the strength is normal in arms and legs distally and proximally. Deep tendon reflexes are asymmetric (right/left) biceps 1/1+, brachioradialis 1/1+, knees 2+/2+, ankles 1+/2, and plantars downgoing bilaterally. Sensory to touch is equal with no neglect on double simultaneous stimulation. Cerebellar function showed no ataxia for [id number] testing. No dysdiadochokinesia. No ataxia for [id number] testing on either side. Tone and bulk of muscles normal. Gait deferred.. On general examination, there is no carotid bruit or murmur, S1-S2 audible. Chest is clear on consultation. Abdomen is soft nontender. No organomegaly, bowel sounds present. Peripheral pulses are present. No peripheral edema. Results - Laboratory Findings CBC and BMP: 06/25/23 12:24 06/25/23 12:24 Abnormal Lab Findings: Abnormal Labs 06/23/23 06/24/23 06/25/23 09:57 13:12 12:24 MCV 103.0 H 102.5 H Glucose 101 H 06/25/23 12:24 MCV Glucose 125 H Assessment and Plan Assessment: * Recurrent episodes (x 3) involving visual disturbance, 2 times involving the right lateral visual field and 1 time bilateral. Each lasting for about 30 minutes followed by headache. Symptoms suggestive of possible TIA. Uncertain if some cholesterol plaque is irritable producing these visual disturbance. * Status postcardiac ablation 06/23/2023 for atrial fibrillation * History of gastric bypass in 1999. * History of breast cancer, in remission. Plan: * Patient had a CT scan of head, which revealed no acute process. I personally reviewed CT head, agree with the findings. * Check carotid Doppler rule out carotid stenosis. * Patient is currently on Xarelto 20 mg daily. * With these recurrent neurological symptoms, would add aspirin 81 mg daily to the regimen. * Hemoglobin A1c 5.4 * Lipid panel with cholesterol 239, LDL 105, HDL 115 and triglycerides 94. Suggest starting Lipitor 20 mg daily to target LDL <70. * Observe overnight. Neurology will follow. Thank you for the consult.
--- NOTE | 2023-06-26 10:21 | US ---
EXAMINATION TYPE: US carotid duplex BILAT DATE OF EXAM: 06/26/2023 COMPARISON: NONE CLINICAL INDICATION: Female, 62 years old with history of Visula disturbance; visual disturbance TECHNIQUE: Carotid duplex ultrasound examination. Indirect Doppler criteria was utilized. FINDINGS: EXAM MEASUREMENTS: RIGHT: Peak Systolic Velocity (PSV) cm/sec ----- Right CCA: 117.7 ----- Right ICA: 80.6 ----- Right ECA: 85.7 ICA/CCA ratio: 0.7 RIGHT: End Diastole cm/sec ----- Right CCA: 25.7 ----- Right ICA: 17.6 ----- Right ECA: 8.5 LEFT: Peak Systolic Velocity (PSV) cm/sec ----- Left CCA: 109.7 ----- Left ICA: 98.4 ----- Left ECA: 83.8 ICA/CCA ratio: 0.9 LEFT: End Diastole cm/sec ----- Left CCA: 27.3 ----- Left ICA: 27.3 ----- Left ECA: 11.1 VERTEBRALS (direction of flow): Right Vertebral: Antegrade Left Vertebral: Antegrade Rhythm: Arrhythmia, pt. has known atrial fibrillation CODING VALIDATOR NOTES: no stenosis or elevated velocities seen, small amount of plaque noted at right car otid bulb IMPRESSION: Mild plaque formation in the carotid bifurcations but no significant common or internal carotid arter y stenosis based on peak systolic velocities and ratios as well as color and grayscale imaging. Criteria for Assigning % of Stenosis / Diameter reduction (Estimation based on the indirect measurements of the internal carotid artery velocities (ICA PSV). 1. Normal (no stenosis)=ICA PSV < 125 cm/s: ratio < 2.0: ICA EDV<40 cm/s. 2. Less than 50% stenosis=ICA PSV < 125 cm/s: ratio < 2.0: ICA EDV<40 cm/s. 3. 50 to 69% stenosis=ICA PSV of 125 to 230 cm/s: ration 2.0 ? 4.0: ICA EDV 40-100 cm/s. 4. Greater than 70% stenosis to near occlusion= ICA PSV > 230 cm/s: ratio > 4.0: ICA EDV > 100 cm/s. 5. Near occlusion= ICA PSV velocities may be low or undetectable: variable ratio and ICA EDV. 6. Total occlusion=unable to detect flow.
--- NOTE | 2023-06-26 10:52 | P.DS ---
Providers Date of admission: 06/24/23 12:26 Attending physician: Chun Valles Consults: 06/25/23 09:19 Consult Physician Routine Consulting Provider: Rocío Sparks Consult Reason/Comments: blurred vision, headaches Do you want consulting provider notified?: Yes Primary care physician: Devin Isaacsoksybil [facility] Course: Patient is doing well. After increasing the dose of metoprolol back to 50 mg twice daily she has not experienced any further visual symptoms or elevated heart rates Last evening she was asymptomatic This morning once again she has been asymptomatic Her heart sounds are normal no rub no gallop Breath sounds are clear Blood pressure 130/71 mmHg pulse rate in the 70s and 80s Impression Paroxysmal atrial fibrillation drug refractory Successful PVI Multaq was stopped and metoprolol dose was reduced to 25 mg twice daily The patient experienced cyclical visual changes just before her next dose of metoprolol. In between she had no visual symptoms Neurologic examination was completely normal including cerebellar examination cranial nerve examination and motor exam as well as gait The first 2 episodes were prominent but the third episode is very mild and brief Once the dose of metoprolol was increased, she has not experienced any further episodes over the last [address] of the brain is normal Neurology was consulted. Carotid study showed very mild disease Her lipid panel was evaluated. HDL is high 115 mg/dL resulting in a high total cholesterol CHADVASC score is 1 and therefore does not merit long-term anticoagulation Carotid study shows very mild thickening of the portillo Her ASCVD score is 3.7% Suggest temporary use of aspirin 81 mg p.o. daily enteric-coated along with Pravachol 40 mg p.o. daily for the next 2 to 3 months At least 3 months of anticoagulation with Xarelto Stop Multaq After 6 to 8 weeks gradual taper of metoprolol once again should be attempted Follow-up with Dr. Devin Stephen and Dr. Mena She will be discharged home today if okay with neurology She is stable from a cardiovascular and neurologic standpoint and has shown improvement Patient Condition at Discharge: Stable Plan - Discharge Summary Discharge Rx Participant: Yes New Discharge Prescriptions: New RX: Aspirin EC [Ecotrin Low Dose] 81 mg PO DAILY #90 tab RX: Pravastatin Sodium [Pravachol] 40 mg PO DAILY #90 tab Continue RX: Loratadine [Claritin] 10 mg PO DAILY PRN PRN Reason: Allergy Symptoms RX: Cholecalciferol [Vitamin D3 (25 Mcg = 1000 Iu)] 1,000 unit PO DAILY RX: Ascorbic Acid [Vitamin C] 500 mg PO DAILY RX: Multivitamin,Therapeutic [Thera] 1 each PO DAILY RX: Metoprolol Tartrate [Lopressor] 50 mg PO BID RX: Calcium Carbonate/Vitamin D3 [Calcium 500 mg Chewable Tablet] 1 each PO BID RX: Ibandronate Sodium [Boniva] 150 mg PO QMONTHLY RX: Rivaroxaban [Xarelto] 20 mg PO W/SUPPER RX: Ferrous Sulfate [Iron (65 MG Elemental)] 325 mg PO DAILY RX: Cyanocobalamin [Vitamin B-12] 500 mcg PO DAILY RX: Anastrozole 1 mg PO QAM Discontinued RX: Dronedarone [Multaq] 400 mg PO AC-BID Discharge Medication List RX: Ascorbic Acid [Vitamin C] 500 mg PO DAILY 05/02/18 [History] RX: Cholecalciferol [Vitamin D3 (25 Mcg = 1000 Iu)] 1,000 unit PO DAILY 05/02/18 [History] RX: Loratadine [Claritin] 10 mg PO DAILY PRN 05/02/18 [History] RX: Multivitamin,Therapeutic [Thera] 1 each PO DAILY 05/02/18 [History] RX: Anastrozole 1 mg PO QAM 06/21/23 [History] RX: Calcium Carbonate/Vitamin D3 [Calcium 500 mg Chewable Tablet] 1 each PO BID 06/21/23 [History] RX: Cyanocobalamin [Vitamin B-12] 500 mcg PO DAILY 06/21/23 [History] RX: Ferrous Sulfate [Iron (65 MG Elemental)] 325 mg PO DAILY 06/21/23 [History] RX: Ibandronate Sodium [Boniva] 150 mg PO QMONTHLY 06/21/23 [History] RX: Metoprolol Tartrate [Lopressor] 50 mg PO BID 06/21/23 [History] RX: Rivaroxaban [Xarelto] 20 mg PO W/SUPPER 06/21/23 [History] RX: Aspirin EC [Ecotrin Low Dose] 81 mg PO DAILY #90 tab 06/26/23 [Rx] RX: Pravastatin Sodium [Pravachol] 40 mg PO DAILY #90 tab 06/26/23 [Rx] Follow up Appointment(s)/Referral(s): Warner Pardo MD [STAFF PHYSICIAN] - 1 Week Activity/Diet/Wound Care/Special Instructions: Post EP study - Ablation instructions 1. Keep access sites dry for 2 days. 2. No heavy lifting or straining for 2 days. 3. Avoid bending the hips repeatedly for 2 days. 4. You may go up and down stairs slowly Call if the following is noted 1. Bleeding, increasing swelling or pain at the access sites. 2. Increasing chest discomfort, especially upon taking a deep breath. 3. Increasing shortness of breath, at rest or with exertion. 4. Undue cough / phlegm 5. Difficulty or pain while swallowing. 6. Pain or change in color in the extremities. 7. Fever, chills, rigors. 8. Increasing headache or neurologic symptoms. 9. Dizziness, fainting, palpitations Stop Multaq Continue Xarelto 20 mg p.o. daily Aspirin 81 mg enteric-coated for 3 months then stop Pravachol 40 mg p.o. daily 3 months then stop Continue metoprolol 50 mg twice daily
[2023-06-26] MEDS: PRAVASTATIN SODIUM 40 MG TAB PO SCH (11:47)
[2023-06-26 12:17] VITALS: BP 110/74; PULSE 72; RESP 18; TEMP 97.9
== END 2023-06-26 12:56 | disposition home or self-care (01) ==
LOC: CATHEP 09:10 → 3SCARD 13:45 → CATHEP 06-24 12:26
PROVIDERS: ADMIT Internal Medicine Clinical Cardiac Electrophysiology; ATTEND Internal Medicine Clinical Cardiac Electrophysiology
DX: I48.0 Paroxysmal atrial fibrillation (principal); H53.8 Other visual disturbances; R51.9 Headache, unspecified; R00.0 Tachycardia, unspecified; Z85.3 Personal history of malignant neoplasm of breast; Z87.891 Personal history of nicotine dependence; Z98.84 Bariatric surgery status; Z79.899 Other long term (current) drug therapy; Z79.01 Long term (current) use of anticoagulants
CPT/HCPCS: 93656; 86900; 86901; 80053; 80048; 84443; 85027 ×2; 86850; 93880; 70450; G0378 ×3; C1894 ×2; C1769 ×3; C1760; C1730 ×2; C1759; C1893; C1733; C1766; J2250; J0330; J1644 ×2; J2001; J3010; J1170; J2704; Q9967

== ENCOUNTER → 2023-07-04 | Outpatient (CLI) | payer BC ==
[2023-07-04 17:14] LABS: HCT 40.7 % (37.2-46.3); HGB 13.4 g/dL (12.0-15.0); MCH 32.5 pg (27.0-32.0); MCHC 32.9 g/dL (32.0-37.0); MCV 98.8 FL (80.0-97.0); Mean Platelet Volume 9.9 FL (9.5-12.2); NRBC Per 100 WBC 0 X 10*3/uL (0.00-0.01); Platelet Count 307 X 10*3/uL (140-440); RBC 4.12 X 10*6/uL (4.10-5.20); RDW 12.5 % (11.5-14.5); WBC 6.23 X 10*3/uL (4.50-10.00)
[2023-07-04 17:39] LABS: BUN/Creat Ratio 21.67 Ratio (12.00-20.00); Calcium 9.7 mg/dL (8.7-10.3); Carbon Dioxide 28.2 mmol/L (21.6-31.8); Chloride 104 mmol/L (96-109); Glucose 81 mg/dL (70-110); Potassium 4.4 mmol/L (3.5-5.5); Sodium 142 mmol/L (135-145)
== END | disposition home or self-care (01) ==
LOC: LABWHC1 12:05
PROVIDERS: ATTEND Nurse Practitioner Adult Health
DX: I48.0 Paroxysmal atrial fibrillation (principal)
CPT/HCPCS: 36415; 80048; 84443; 85027